=== PATIENT | male | born 1960 | race Caucasian/White ===

== ENCOUNTER 2024-05-03 12:55 | Emergency (ER) | payer MEDICAID ==
[~2024-05-03] VITALS: Ht 180.3 cm; Wt 80.0 kg
[~2024-05-03 12:55] MED LIST: AMLO10TA4 MT; ASPI-1406 PO; CLOP-31 PO; LANTUSUD SUBCUT
[2024-05-03 12:58] VITALS: BP 156/85; PULSE 94; RESP 18; TEMP 97.9; O2SAT 94
[2024-05-03] MEDS: SODIUM CHLORIDE 0.9% 1,000 ML IV ONE (13:44)
== END 2024-05-03 14:05 | disposition left against medical advice (07) ==
LOC: ER 12:55
DX: R53.1 Weakness (principal); I25.2 Old myocardial infarction; I10 Essential (primary) hypertension; F15.10 Other stimulant abuse, uncomplicated; Z79.4 Long term (current) use of insulin; Z79.899 Other long term (current) drug therapy
CPT/HCPCS: 99283; 71045; J7030